=== PATIENT | female | born 1975 | race Caucasian/White ===

== ENCOUNTER 2018-04-23 09:29 | Emergency (ER) | END 2018-04-23 10:26 | disposition home or self-care (01) ==

== ENCOUNTER 2019-01-23 12:19 | Day surgery (SDC) | payer OTHER ==
[2019-01-23] VITALS (15 sets, daily range): BP systolic 104–126; BP diastolic 62–86; PULSE 82–114; RESP 16–23; Ht 149.9 cm; Wt 68.7 kg
[~2019-01-23] VITALS: Ht 149.9 cm; Wt 68.7 kg
[~2019-01-23 12:19] MED LIST: ACET500C5 PO; AMOX500C2 PO
[2019-01-23] MEDS ORDERED: LORA-186 PO (13:00)
[2019-01-23] MEDS ORDERED: CETI10TA19 PO (13:02)
--- NOTE | 2019-01-23 13:27 | HPN ---
Date/Time of Note Date/Time of Note DATE: 01/23/19 TIME: 13:27 Interval H&P Admission Note Pt. seen H&P reviewed: No system changes JAMES GUSTAFSON MD January 23, 2019 13:27
--- NOTE | 2019-01-23 15:15 | PREAC ---
Date/Time of Note Date/Time of Note DATE: 01/23/19 TIME: 15:12 Anesthesia Eval and Record Evaluation Time Pre-Procedure Interview DATE: 01/23/19 TIME: 15:12 Age 43 Sex female NPO: 8 hrs Preoperative diagnosis chronic sinusitis Planned procedure REMOVAL ETHMOID SINUS, EXPLORATION Past Medical History Past Medical History: Includes GI: Obesity Surgery & Anesthesia Issues No known issue Meds Anticoagulation: No Beta Pawel within 24 hr: No Reason Beta Pawel not given: Pt. not on B-Pawel Reported Medications Cetirizine Hcl* (Cetirizine Hcl*) 10 Mg Tablet, 10 MG PO DAILY, #30 TAB 01/23/19 Discontinued Reported Medications Loratadine* (Claritin*) 10 Mg Tablet, 10 MG PO DAILY, TAB 01/23/19 Discontinued Scripts Amoxicillin* (Amoxicillin*) 500 Mg Cap, 500 MG PO TID for 10 Days, CAP Prov:DEJA MORAN PA-C 04/23/18 Acetaminophen* (Tylophen*) 500 Mg Capsule, 1 CAP PO Q6H PRN for PAIN AND OR ELEVATED TEMP, #20 CAP Prov:DEJA MORAN PA-C 04/23/18 Meds reviewed: Yes Allergies Coded Allergies: No Known Allergy (Unverified , 01/23/19) Allergies Reviewed: Yes Labs/Studies Labs Reviewed: Reviewed by anesthesiologist test: Negative Studies: ECG, CXR Pre-procedure Exam Last vitals Vital Signs Date Temp Pulse Resp B/P (MAP) Pulse Ox O2 O2 Flow FiO2 Time Delivery Rate 01/23/19 98.4 89 16 122/78 100 Room Air 14:18 (93) Airway: Adequate mouth opening, Adequate thyromental dist Mallampati: Mallampati II Teeth: Normal Lung: Normal Heart: Normal ASA Physical Status ASA physical status: 2 Emergency: None Planned Anesthetic General/MAC: ETT Pre-operative Attestations Prior to commencing anesthesia and surgery, the patient was re-evaluated, there was verification of: *The patient's identity *The results of appropriate recent lab work and preoperative vital signs *The above evaluation not changing prior to induction *Anesthetic plan, risk benefits, alternative and complications discussed with patient/family; questions answered; patient/family understands, accepts and wishes to proceed. JOELLE ADAMS January 23, 2019 15:15
[2019-01-23] MEDS ORDERED: LIDOCAINE 1%/EPI (1:100,000) (MDV) 20 ML ONE (15:25)
[2019-01-23] MEDS ORDERED: COCAINE 4% 4 ML TOP ONE ×2 (15:26→16:42)
[2019-01-23] MEDS ORDERED: OXYMETAZOLINE 0.05% 15 ML NAS SPRAY NASAL ONE ×2 (15:26→16:29)
[2019-01-23] MEDS ORDERED: BACITRACIN/POLYMYXIN 28.35 GM OINT TOP ONE (15:26)
[2019-01-23] MEDS ORDERED: CEFAZOLIN 1 GM INJ ONE (15:31)
[2019-01-23] MEDS ORDERED: LIDOCAINE 100 MG SYRINGE ONE (15:31)
[2019-01-23] MEDS ORDERED: PROPOFOL 20 ML ONE (15:31)
[2019-01-23] MEDS ORDERED: MIDAZOLAM 1 MG/ML 2 ML INJ ONE (15:32)
[2019-01-23] MEDS ORDERED: FENTAnyl 50 MCG/ML VIAL ONE ×2 (15:32→15:58)
[2019-01-23] MEDS ORDERED: DESFLURANE 15 MIN ONE (15:40)
[2019-01-23] MEDS ORDERED: SUGAMMADEX SODIUM 200 MG/2 ML VIAL IV ONE (15:40)
[2019-01-23] MEDS ORDERED: HYDROmorphONE 2 MG/ML SYG ONE (16:15)
[2019-01-23] MEDS ORDERED: LABETALOL HCL 20MG INJ ONE (16:20)
[2019-01-23] MEDS ORDERED: EPINEPHrine 1 MG INJ ONE (16:24)
[2019-01-23] MEDS ORDERED: ONDANSETRON 4 MG INJ IV PRN (16:30)
[2019-01-23] MEDS ORDERED: LABETALOL HCL 20MG INJ IV PRN (16:30)
[2019-01-23] MEDS ORDERED: METOCLOPRAMIDE 10 MG INJ IV PRN (16:30)
[2019-01-23] MEDS ORDERED: hydrALAzine 20 MG INJ IV PRN (16:30)
[2019-01-23] MEDS ORDERED: MEPERIDINE 25 MG INJ IV PRN (16:30)
[2019-01-23] MEDS ORDERED: FENTAnyl 50 MCG/ML VIAL IV PRN ×2 (16:30)
[2019-01-23] MEDS ORDERED: HYDROmorphONE 1 MG/5 ML IV SYRINGE IV PRN ×2 (16:30)
[2019-01-23] MEDS ORDERED: DEXAMETHASONE 4 MG/ML 5 ML INJ ONE (16:39)
[2019-01-23] MEDS ORDERED: TRIAMCINOLONE ACET 40 MG/ML INJ ONE ×3 (16:44→16:51)
[2019-01-23] MEDS ORDERED: ESMOLOL 10 ML ONE (16:57)
[2019-01-23] MEDS ORDERED: HYDROCORTISONE 100 MG INJ ONE (16:57)
--- NOTE | 2019-01-23 17:15 | OPR ---
Date/Time of Note Date/Time of Note DATE: 01/23/19 TIME: 17:09 Operative Report Procedure Date: January 23, 2019 Preoperative Diagnosis Chronic sinusitis, nasal polyposis, rhinorrhea, anosmia. Postoperative Diagnosis Same Operation/Procedure Performed Image guided endoscopic bilateral maxillary antrostomies with removal of tissue, frontal sinusotomies with removal of tissue, total ethmoidectomies, sphenoid sinusotomies. Surgeon see signature line Interior Systems Carpenter None Anesthesia Type: general Estimated Blood Loss: 150 - 200 ml's Transfusion none Specimen Multiple polyps, sinus contents. Grafts/Implants none Complications none Pt Condition Post Procedure: stable Disposition: PACU Indications Chronic sinusitis. Procedure Description Findings: Diffuse polyposis. All meati and sinuses filled with polyps as well as mucinous thick discharge. Description of procedure:The patient was identified in the holding area. We had a discussion to confirm understanding of all indications risks benefits alternatives and postoperative care associated with the operation. The patient signed informed consent was taken to the operating room. The patient was laid supine on the operating room table and anesthesia was provided in the following manner: GETA. The face was draped in sterile fashion and the nose was packed with 4% cocaine pledgets. 0 endoscopy was performed of all nasal turbinates and meati. This revealed the findings described above. The procedure began on the right side under endoscopic guidance. The microdebrider was used to resect all polypoid tissue in and inferior to superior fashion. The uncinate process was also resected in an inferior to superior fashion until the area of the frontal sinus outflow tract was reached. Frontal sinusotomy: A curved curet was used to remove the bony elements of the Ager Nasi cell. Next, with a 45 camera, the frontal sinus outflow tract was explored and all polyps removed. Care was taken not to cause too much mucosal disruption in this area in order to avoid scarring and stenosis. The tract was patent without polyp or obstructive pathology after completion. Maxillary antrostomy: Once the frontal sinus was addressed, the maxillary sinus ostium was identified and entered with the microdebrider. It was widened anteriorly and inferiorly to complete the maxillary antrostomy. Significant intrasinus polyp and mucin was removed. Ethmoidectomy: Next, the zero degree endoscope was again used to visualize the middle meatus. Anterior and posterior ethmoid air cells were resected in an inferior to superior fashion sparing the lamina papyracea and the skull base. All excess mucosa and polypoid tissue were removed with an upbiting forcep. Sphenoid sinusotomy: The anterior face of the sphenoid sinus was identified with the zero degree endoscopy and entered inferiorly and medially with a seeker. The microdebrider was used to widen this inferomedially to complete the sphenoid sinusotomy. At this point, all bony fragments were removed and a large Nasopore was placed into the ethmoidectomy defect. The contralateral side was at this point addressed in the same sequence dictated above. Frontal sinusotomy, total ethmoidectomy, sphenoid sinusotomy and maxillary antrostomy proceeded in the exact same sequences as the contralateral side. At completion, this side was also packed with a Nasopore pack and bilateral hemostasis was ensured with a final nasal endoscopy. The patient was awakened, extubated and taken to the PACU in stable condition. Complications: None. JAMES GUSTAFSON MD January 23, 2019 17:15
[2019-01-23] MEDS ORDERED: OXYCODONE/ACETAMINOPHEN (5/325) TAB PO PRN (17:30)
[2019-01-23] MEDS ORDERED: morphine 2 MG INJ IV PRN (17:30)
--- NOTE | 2019-01-23 18:11 | PAC ---
Date/Time of Note Date/Time of Note DATE: 01/23/19 TIME: 18:11 Post-Anesthesia Notes Post-Anesthesia Note Last documented vital signs Vital Signs Date Temp Pulse Resp B/P (MAP) Pulse Ox O2 O2 Flow FiO2 Time Delivery Rate 01/23/19 98.6 17:57 01/23/19 89 16 122/78 100 Room Air 14:18 (93) Activity: WNL Respiratory function: WNL Cardiovascular function: WNL Mental status: Baseline Pain reasonably controlled: Yes Hydration appropriate: Yes Nausea/Vomiting absent: Yes JOELLE ADAMS January 23, 2019 18:11
== END 2019-01-23 19:39 | disposition home or self-care (01) ==
LOC: SDS 12:19
PROVIDERS: ATTEND Otolaryngology
DX: J32.2 Chronic ethmoidal sinusitis (principal); J32.1 Chronic frontal sinusitis; J33.8 Other polyp of sinus
CPT/HCPCS: 31253; 31256; 88304; 88312; J0171; J0690; J1100; J1170; J2001; J2250; J2765; J3010; Z7512; Z7610; J1720